=== PATIENT | female | born 1930 | race Native Hawaiian/Other Pacific Islander ===

== ENCOUNTER 2018-04-26 16:55 | Emergency (ER) | payer OTHER ==
[~2018-04-26] VITALS: Ht 180.3 cm; Wt 54.2 kg
[2018-04-26 17:57] LABS: PLATELET COUNT 182 K/uL (152-353)
[2018-04-26 18:06] LABS: POTASSIUM 4.7 mmol/L (3.6-5.2)
[2018-04-26 19:17] VITALS: BP 123/61; TEMP 97.9
[2018-04-27] MEDS ORDERED: LORA0.5T17 PO ×2 (00:14→00:40)
[2018-04-27] MEDS ORDERED: MELATONIN5 M4 PO (00:17)
[2018-04-27] MEDS ORDERED: NITROFURANTOIN100 MG PO (00:20)
[2018-04-27] MEDS ORDERED: [UNRECOGNIZED DRUG - CODE] PO (00:22)
[2018-04-27] MEDS ORDERED: QUETIAPINE50 MG PO (00:25)
[2018-04-27] MEDS ORDERED: [UNRECOGNIZED DRUG - CODE] PO (00:31)
[2018-04-27] MEDS ORDERED: TRAZODONE300 MG PO (00:34)
[2018-04-27] MEDS ORDERED: [UNRECOGNIZED DRUG - OTHER] PO (00:44)
[2018-04-27] MEDS ORDERED: OXYC5TAB53 PO (00:47)
[2018-04-27] MEDS ORDERED: EASY-LAX100 MG PO (00:50)
[2018-04-27] MEDS ORDERED: FENT50DI TD (00:52)
[2018-04-27] MEDS ORDERED: MACRODANTIN100 MG PO (13:54)
== END 2018-04-26 19:20 | disposition other institution (70) ==
LOC: ED 16:59
PROVIDERS: Family Medicine
DX: R44.2 Other hallucinations (principal); R46.89 Other symptoms and signs involving appearance and behavior
CPT/HCPCS: 36415; 80053; 85027; 93005; 99285